=== PATIENT | male | born 1990 | race Caucasian/White ===

== ENCOUNTER 2023-07-15 19:05 | Emergency (ER) | payer SELFPAY ==
[~2023-07-15] VITALS: Ht 182.8 cm; Wt 120.4 kg
[2023-07-15 19:06] VITALS: BP 147/94
--- NOTE | 2023-07-15 19:14 | ED General ---
General Stated Complaint: L LEG NUMBNESS 4 MONTHS Source of Information: Patient Exam Limitations: No Limitations History of Present Illness Date Seen by Provider: Jul 15, 2023 Time Seen by Provider: 19:03 Initial Comments 33-year-old male presents to the emergency department for numbness to the medial aspect of his left thigh up near his groin for 4 months. No known injury. No weakness. No pain. No urinary symptoms. No saddle anesthesia. All other systems reviewed and negative except documented per HPI. Voice recognition software was used to help create this chart Allergies and Home Medications Patient Home Medication List Home Medication List Reviewed: Yes Review of Systems Review of Systems Constitutional: see HPI Past Axaslhx-Kofihp-Xhttys Hx Patient Social History Tobacco Use?: Yes Use of E-Cig and/or Vaping dev: No Substance use?: No Alcohol Use?: No Physical Exam Vital Signs Capillary Refill : Height, Weight, BMI Height: '" Weight: lbs. oz. kg; BMI Method: General Appearance: No Apparent Distress, WD/WN Respiratory: Chest Non Tender, Lungs Clear, Normal Breath Sounds, No Accessory Muscle Use Cardiovascular: Regular Rate, Rhythm, No Murmur, Normal Peripheral Pulses Gastrointestinal: Non Tender, Soft Back: Normal Inspection, No Vertebral Tenderness Extremity: Normal Capillary Refill, Normal Inspection, Normal Range of Motion, Non Tender, No Calf Tenderness Neurologic/Psychiatric: Alert, No Motor/Sensory Deficits Skin: Normal Color, Warm/Dry Progress/Results/Core Measures Suspected Sepsis SIRS Temperature: Pulse: Respiratory Rate: Blood Pressure / Mean: Results/Orders Vital Signs/I&O Capillary Refill : Departure Communication (Admissions) Patient is hemodynamically stable. Motor functions intact. He has an area of numbness to the medial aspect of his left thigh/groin region. No saddle anesthesia. No loss of bowel or bladder control. No indication for imaging and no evidence for an emergent medical condition at this time. Symptoms present for 4 months. Referred on to primary care. Impression Primary Impression: Paresthesia Disposition: 01 HOME, SELF-CARE Condition: Stable Departure-Patient Inst. Referrals: NO,LOCAL PHYSICIAN (PCP) Primary Care Physician [facility] Patient Instructions: Paresthesia (DC) Add. Discharge Instructions: As discussed avoid tight clothing in the area. Perform gentle stretching exercises as discussed. Return to the emergency department for any severe concerns. Follow-up with your primary doctor for any nonemergent needs. BASHIR PATEL DO Jul 15, 2023 19:14
== END 2023-07-15 19:15 | disposition home or self-care (01) ==
LOC: EDUNIT# 19:05 → ER FS 19:07
DX: R20.2 Paresthesia of skin (principal); R20.0 Anesthesia of skin; Z28.310 Unvaccinated for COVID-19
CPT/HCPCS: 99281